=== PATIENT | female | born 1965 | race Caucasian/White ===

== ENCOUNTER 2021-10-30 13:51 | Observation (INO) ==
[2021-10-30] MEDS ORDERED: Ondansetron 4 MG/2 ML VIAL IVP ONE (17:13)
[2021-10-30] MEDS ORDERED: 0.9 % Sodium Chloride 1,000 ML IVC ONE (17:13)
[2021-10-30 17:24] LABS: Bacteria,Urine Few per hpf (None-Few); Bilirubin,Urine Negative (Negative); Blood,Urine Negative (Negative); Clarity,Urine Turbid (Clear); Color,Urine Yellow (Yellow); Glucose,Urine (UA) 50 mg/dL (Normal); Hyaline Casts,Urine Few per lpf (None Seen); Ketones,Urine Trace mg/dL (Negative); Leukocyte Esterase,Urine Large (Negative); Mucus,Urine Few per lpf (None-Few); Nitrite,Urine Negative (Negative); PH,Urine 6.5 pH Units (5.0-8.0); Protein,Urine >=300 mg/dL (Neg-Trace); Specific Gravity,Urine > 1.030 (1.010-1.025); Squamous Epithelial Cell,Urine Moderate per hpf (None-Few); Urobilinogen,Urine Normal (Normal); WBC,Urine 30-50 per hpf (0-3)
[2021-10-30 17:50] LABS: Basophils % 0.2 %; Eosinophils % 0.2 %; Hematocrit 40.8 % (35.3-44.9); Hemoglobin 13.9 g/dL (11.5-15.4); Immature Granulocytes % 0.3 % (0-4); Immature Platelets 13.1 % (1.1-6.1); Lymphocytes # 2.8 K/mcL (0.6-4.6); Lymphocytes % 22.5 %; Mean Corpuscular HGB Conc 34.1 g/dL (31.6-35.5); Mean Corpuscular Hemoglobin 30.9 pg (28.0-33.3); Mean Corpuscular Volume 90.7 fL (83.0-100.0); Mean Platelet Volume 11.4 fL (9.4-12.4); Monocytes # 1.1 K/mcL (0.0-1.3); Monocytes % 8.9 %; Neutrophils # 8.3 K/mcL (1.6-8.9); Platelet Count 321 K/mcL (140-400); Red Cell Distribution Width 13.6 % (11.5-14.5); Segmented Neutrophils % 67.9 %; White Blood Count 12.2 K/mcL (4.3-11.1)
[2021-10-30 18:23] LABS: Influenza A PCR Negative (Negative); Influenza B PCR Negative (Negative); Resp. Syncytial Virus PCR Negative (Negative)
[2021-10-30 18:24] LABS: SARS-CoV-2 by PCR (In House) Negative (Negative)
[2021-10-30 19:16] LABS: Albumin 3.9 g/dL (3.5-5.7); Albumin/Globulin Ratio 1.1 (1.1-2.2); Bilirubin,Indirect 0.4 mg/dL (0.0-1.0); Bilirubin,Total 0.4 mg/dL (0.3-1.0); Calcium 8.7 mg/dL (8.6-10.3); Globulin 3.4 g/dL (2.4-3.5); Potassium 3.3 mEq/L (3.5-5.1); Total Protein 7.3 g/dL (6.4-8.9)
[2021-10-30 20:12] LABS: Bilirubin,Urine Negative (Negative); Blood,Urine Negative (Negative); Clarity,Urine Clear (Clear); Color,Urine Yellow (Yellow); Glucose,Urine (UA) Normal (Normal); Ketones,Urine Trace mg/dL (Negative); Leukocyte Esterase,Urine Moderate (Negative); Mucus,Urine Few per lpf (None-Few); Nitrite,Urine Negative (Negative); Protein,Urine 70 mg/dL (Neg-Trace); RBC,Urine 0-3 per hpf (0-3); Specific Gravity,Urine > 1.030 (1.010-1.025); Squamous Epithelial Cell,Urine Few per hpf (None-Few); Urobilinogen,Urine Normal (Normal)
[2021-10-30] MEDS ORDERED: Melatonin 3 MG TABLET PO PRN (20:51)
[2021-10-30] MEDS ORDERED: Naloxone 0.4 MG/ML INJ IVP PRN (20:51)
[2021-10-30] MEDS ORDERED: Acetaminophen 325 MG TABLET PO PRN (20:54)
[2021-10-30] MEDS ORDERED: UBROGEPANT 100 MG PO PRN (20:54)
[2021-10-30] MEDS ORDERED: QUEtiapine Fumarate 100 MG TABLET PO SCH (21:00)
[2021-10-30] MEDS ORDERED: OXCARBAZEPINE 600 MG PO SCH (21:00)
[2021-10-30] MEDS ORDERED: Potassium Chloride Elixir 20 MEQ/15 ML UDC PO ONE (21:01)
[2021-10-30] MEDS ORDERED: Ondansetron ODT 4 MG TAB.RAPDIS PO PRN (21:14)
[2021-10-30 22:26] LABS: Amylase 33 Units/L (29-103); Lipase 8 Units/L (11-82); Magnesium 1.9 mg/dL (1.6-2.6); Phosphorous 3.4 mg/dL (2.7-4.5)
[2021-10-30] MEDS: Ringers Solution, Lactated 1,000 ML IVC SCH (22:28)
[2021-10-30 22:35] LABS: Troponin I < 0.03 ng/mL (< 0.04)
[2021-10-30] MEDS: OXcarbazepine 150 MG TABLET PO SCH (23:07)
[2021-10-30] MEDS ORDERED: Ketorolac 30 MG/ML VIAL IVP ONE (23:46)
[2021-10-31 02:09] LABS: Basophils % 0.3 %; Eosinophils # 0.1 K/mcL (0.0-0.6); Eosinophils % 0.7 %; Hematocrit 33.1 % (35.3-44.9); Immature Granulocytes % 0.4 % (0-4); Lymphocytes # 2.4 K/mcL (0.6-4.6); Lymphocytes % 19.7 %; Mean Corpuscular HGB Conc 34.1 g/dL (31.6-35.5); Mean Corpuscular Hemoglobin 30.6 pg (28.0-33.3); Mean Corpuscular Volume 89.7 fL (83.0-100.0); Mean Platelet Volume 10.2 fL (9.4-12.4); Monocytes # 1.1 K/mcL (0.0-1.3); Neutrophils # 8.4 K/mcL (1.6-8.9); Platelet Count 323 K/mcL (140-400); Red Blood Count 3.69 M/mcL (3.82-4.97); Red Cell Distribution Width 13.6 % (11.5-14.5); Segmented Neutrophils % 69.9 %
[2021-10-31 02:10] LABS: Hemoglobin 11.3 g/dL (11.5-15.4)
[2021-10-31 02:26] LABS: Alanine Aminotransferase 6 Units/L (7-52); Albumin 3.5 g/dL (3.5-5.7); Albumin/Globulin Ratio 1.2 (1.1-2.2); Alkaline Phosphatase 86 Units/L (34-104); Aspartate Amino Transferase 11 Units/L (13-39); BUN/Creatinine Ratio 21 (6-26); Bilirubin,Total 0.4 mg/dL (0.3-1.0); Blood Urea Nitrogen 16 mg/dL (6-20); Calcium 8.4 mg/dL (8.6-10.3); Carbon Dioxide 24 mEq/L (23-29); Chloride 101 mEq/L (98-107); Globulin 2.9 g/dL (2.4-3.5); Glucose 105 mg/dL (70-105); Magnesium 1.8 mg/dL (1.6-2.6); Osmolality,Calculated 274 (280-300); Phosphorous 3.3 mg/dL (2.7-4.5); Sodium 131 mEq/L (136-145); Total Protein 6.4 g/dL (6.4-8.9)
[2021-10-31] MEDS: Ringers Solution, Lactated 1,000 ML IVC SCH (05:14)
[2021-10-31] MEDS ORDERED: *HR* Enoxaparin 40 MG/0.4 ML SYRINGE SQ SCH (06:00)
[2021-10-31] MEDS ORDERED: Levothyroxine 25 MCG TABLET PO SCH (06:30)
[2021-10-31] MEDS ORDERED: Simethicone 40 MG/0.6 ML MLS IR ONE (08:58)
[2021-10-31] MEDS ORDERED: *HR* Propofol 200 MG/20 ML VIAL IVP ONE (08:59)
[2021-10-31] MEDS ORDERED: Lidocaine -MPF 2% 5 ML VIAL ONE (08:59)
[2021-10-31] MEDS ORDERED: cloNIDine HCL 0.1 MG TABLET PO SCH (09:00)
[2021-10-31] MEDS ORDERED: amLODIPine 5 MG TABLET PO SCH (09:00)
[2021-10-31] MEDS ORDERED: atenoloL 50 MG TABLET PO SCH (09:00)
[2021-10-31] MEDS ORDERED: Venlafaxine XR (24 HR) 150 MG CAP.ER.24H PO SCH (09:00)
[2021-10-31] MEDS ORDERED: tiZANidine 4 MG TABLET PO SCH (09:00)
[2021-10-31] MEDS ORDERED: Loratadine 10 MG TABLET PO SCH (09:00)
[2021-10-31] MEDS: OXcarbazepine 150 MG TABLET PO SCH (09:17)
[2021-10-31 11:14] VITALS: BP 161/96; PULSE 64; TEMP 98.4; O2SAT 96
[2021-10-31] MEDS ORDERED: Ketorolac 30 MG/ML VIAL IVP ONE (12:36)
[2021-10-31] MEDS ORDERED: traZODone 50 MG TABLET PO SCH (21:00)
== END 2021-10-31 13:12 | disposition home or self-care (01) ==
LOC: EMEROOARM 13:51 → 3BNU 13:51 → SUATTDRO 20:05 → 3BNU 21:19
PROVIDERS: ADMIT Internal Medicine; ATTEND Internal Medicine